=== PATIENT | male | born 1960 | race Caucasian/White ===

== ENCOUNTER 2020-01-25 16:26 | Emergency (ER) | payer BC ==
[~2020-01-25] VITALS: Ht 180.3 cm; Wt 125.0 kg
[~2020-01-25 16:26] MED LIST: BENICAR 20MG TA20 MG PO; CELEBREX 200MG200 MG PO; FLOMAX 0.40.4 MG/CAP PO; LIPITOR20 MG PO; NORCO 325 MG-7.1 TAB PO; NORVASC 10MG10 MG PO; PRILOTC PO; ZOFRAN 4MG T4 MG/TAB
[2020-01-25 16:28] VITALS: TEMP 98.3
[2020-01-25 16:39] LABS: BASO % 0.4 % (0.0-2.0); EOS # 0.3 (0.0-0.7); EOS % 3.6 % (0-4.0); GRAN # 4.4 (1.4-6.5); GRAN % 58.1 % (42.2-75.2); HEMOGLOBIN 15.4 g/dl (13.5-18.0); LYMPH # 2.1 (1.2-3.4); LYMPH % 27.2 % (20.0-51.0); MEAN CELL VOLUME 90 fl (80.0-100.0); MEAN CORPUSCULAR HEMOGLOBIN 30 pg (27.0-31.0); MEAN CORPUSCULAR HGB CONC 33 g/dl (33.0-37.0); MEAN PLATELET VOLUME 9.6 fl (7.4-10.4); MONO # 0.8 (0.1-0.6); MONO % 10.4 % (1.7-9.3); PLATELET COUNT 266 K/mm3 (130-400); RED BLOOD COUNT 5.21 M/mm3 (4.20-5.60); REDCELL DISTRIBUTION WIDTH-CV 13.2 % (11.5-14.5)
[2020-01-25 16:43] LABS: PROTHROMBIN TIME 11.4 SECONDS (9.7-12.8)
[2020-01-25 16:46] LABS: ALANINE AMINOTRANSFERASE 94 U/L (4-49); ALBUMIN 4.5 gm/dL (3.5-5.0); ALKALINE PHOSPHATASE 140 U/L (50-136); ANION GAP 7 mmol/L (7-16); AST,SGOT 46 U/L (15-37); BILIRUBIN,TOTAL 0.6 mg/dL (0.0-1.0); BLOOD UREA NITROGEN 22 mg/dL (9-20); CARBON DIOXIDE 26 mmol/L (22-30); CHLORIDE 105 mmol/L (98-107); GLUCOSE 119 mg/dL (74-106); LIPASE 76 U/L (23-300); PARTIAL THROMBOPLASTIN TIME 30.7 SECONDS (26.0-37.0); POTASSIUM 4.3 mmol/L (3.4-5.0); SODIUM 137 mmol/L (137-145); TOTAL PROTEIN 8.2 gm/dL (6.4-8.2)
[2020-01-25 17:05] LABS: TROPONIN-I < 0.012 ng/mL (0.000-0.035)
[2020-01-25 17:15] VITALS: BP 159/87; PULSE 67
[2020-01-25] MEDS ORDERED: NORVASC 10MG10 MG PO (17:36)
[2020-01-25] MEDS ORDERED: CELEBREX 1100 MG/CAP PO (17:36)
[2020-01-25] MEDS ORDERED: PRILOSEC 20MG20 MG PO (17:37)
[2020-01-25] MEDS ORDERED: MICARDIS40 MG PO (17:37)
== END 2020-01-25 17:15 | disposition short-term general hospital (02) ==
LOC: COL.ER 16:26
PROVIDERS: Emergency Medicine
DX: I21.19 ST elevation (STEMI) myocardial infarction involving other coronary artery of inferior wall (principal); E11.9 Type 2 diabetes mellitus without complications; I10 Essential (primary) hypertension; Z79.02 Long term (current) use of antithrombotics/antiplatelets
CPT/HCPCS: J1644; J2405; J3101; J7030

== ENCOUNTER → 2021-12-17 | Outpatient (CLI) | payer BC ==
[~2021-12-17] MED LIST changes: +CELEBREX 1100 MG/CAP PO; +MICARDIS40 MG PO; +PRILOSEC 20MG20 MG PO
== END ==
LOC: MHCPAIN 08:14
DX: M47.812 Spondylosis without myelopathy or radiculopathy, cervical region (principal); M54.12 Radiculopathy, cervical region; M25.512 Pain in left shoulder; M96.1 Postlaminectomy syndrome, not elsewhere classified
CPT/HCPCS: G0463

== ENCOUNTER 2021-12-28 12:47 | Emergency (ER) | payer BC ==
[~2021-12-28] VITALS: Ht 180.3 cm; Wt 125.0 kg
[2021-12-28] MEDS ORDERED: MEDROL 4MG DOSPA4 MG PO (15:01)
[2021-12-28] MEDS ORDERED: FLEXERIL 1010 MG/TAB PO (15:01)
[2021-12-28] MEDS ORDERED: PERCOCET 325 MG1 TA2 PO (15:01)
[2021-12-28 15:24] VITALS: BP 159/96; PULSE 78; TEMP 98
== END 2021-12-28 15:29 | disposition home or self-care (01) ==
LOC: COL.ER 12:47
DX: M54.16 Radiculopathy, lumbar region (principal); Z87.442 Personal history of urinary calculi
CPT/HCPCS: J2270; J2360

== ENCOUNTER → 2023-07-21 | Outpatient (CLI) | payer BC ==
[~2023-07-21] MED LIST changes: +FLEXERIL 1010 MG/TAB PO; +MEDROL 4MG DOSPA4 MG PO; +PERCOCET 325 MG1 TA2 PO
== END ==
LOC: MHCPAIN 13:20
DX: M25.512 Pain in left shoulder (principal); Z98.1 Arthrodesis status; M54.2 Cervicalgia; M54.50 Low back pain, unspecified
CPT/HCPCS: G0463